=== PATIENT | female | born 1965 | race Hispanic/Latino ===

== ENCOUNTER 2016-10-21 07:49 | Day surgery (SDC) | payer OTHER ==
[2016-10-14 08:11] VITALS: BMI 24.6
[2016-10-21] MEDS ORDERED: Lidocaine 1% Inj (20ml) ONE (09:39)
[2016-10-21] MEDS ORDERED: Propofol 10 mg/ml Inj (20 ML) ONE ×2 (09:39→10:21)
[2016-10-21] MEDS ORDERED: Sodium Chloride 0.9% 1,000 ML IV SCH (09:45)
[2016-10-21 11:08] VITALS: PULSE 65
[2016-10-21 11:25] VITALS: BP 130/79; RESP 18; TEMP 97.8; O2SAT 97
== END 2016-10-21 12:20 | disposition home or self-care (01) ==
LOC: ENDO 07:49
PROVIDERS: ATTEND Internal Medicine Gastroenterology
DX: K21.9 Gastro-esophageal reflux disease without esophagitis (principal); K29.50 Unspecified chronic gastritis without bleeding; Z12.11 Encounter for screening for malignant neoplasm of colon; K57.30 Diverticulosis of large intestine without perforation or abscess without bleeding; K64.1 Second degree hemorrhoids
CPT/HCPCS: 43239; 45378; 88305; 88312; 88342; J2704; J3010; J7040 ×2